=== PATIENT | female | born 1965 | race Caucasian/White ===

== ENCOUNTER 2017-02-10 16:49 | Emergency (ER) | payer OTHER ==
[~2017-02-10] VITALS: Ht 162.6 cm; Wt 74.4 kg
[2017-02-10] MEDS ORDERED: TRAM50TA2 PO (17:07)
[2017-02-10] MEDS ORDERED: IBUPROFEN 600 MG TABLET PO ONE (17:30)
[2017-02-10] MEDS ORDERED: IBUPROFEN 800 MG TABLET ONE (17:33)
[2017-02-10] MEDS ORDERED: IBUPROFEN 600 MG TABLET ONE (17:34)
--- NOTE | 2017-02-10 17:52 | NUR ---
Patient discharged to home in stable conditon. Written and verbal after care instructions given. Patient verbalizes understanding of instructions.
== END 2017-02-10 17:53 | disposition home or self-care (01) ==
LOC: ER 16:49
DX: S20.211A Contusion of right front wall of thorax, initial encounter (principal); S60.221A Contusion of right hand, initial encounter; S80.11XA Contusion of right lower leg, initial encounter; M19.90 Unspecified osteoarthritis, unspecified site; Z88.2 Allergy status to sulfonamides; W22.8XXA Striking against or struck by other objects, initial encounter; Y93.89 Activity, other specified; Y92.89 Other specified places as the place of occurrence of the external cause; Y99.8 Other external cause status
CPT/HCPCS: 71101; 73130; 73590; A4663

== ENCOUNTER 2017-09-08 19:11 | Emergency (ER) | payer OTHER ==
[~2017-09-08] VITALS: Ht 152.4 cm; Wt 73.0 kg
[~2017-09-08 19:11] MED LIST: TRAM50TA2 PO
--- NOTE | 2017-09-08 19:47 | NUR ---
PT IN BED. MD MUÑIZ AT BEDSIDE CONDUCTING MD GARDUNO.
--- NOTE | 2017-09-08 20:03 | NUR ---
Patient discharged to home in stable conditon. Written and verbal after care instructions given. Patient verbalizes understanding of instructions. Patient admits to having throat discomfort; however, denies difficulty swallowing. Patient able to ambulate unassisted with steady gait. Patient left with all personal belongings.
[2017-09-08 20:08] VITALS: BP 146/86
== END 2017-09-08 20:03 | disposition home or self-care (01) ==
LOC: ER 19:13
DX: B34.9 Viral infection, unspecified (principal); M19.90 Unspecified osteoarthritis, unspecified site; G89.29 Other chronic pain; Z88.2 Allergy status to sulfonamides; Z79.891 Long term (current) use of opiate analgesic
CPT/HCPCS: A4663